=== PATIENT | male | born 1960 | race Caucasian/White ===

== ENCOUNTER 2022-03-28 16:53 | Emergency (ER) | payer OTHER ==
[2022-03-28 17:05] VITALS: PULSE 59; TEMP 98.9; BMI 21.2
[2022-03-28 17:55] LABS: HEMATOCRIT 48.9 % (35.4-49); HEMOGLOBIN 16.9 G/dL (11.7-16.9); MCH 31.3 pg (25.7-33.7); MCHC 34.6 g/dl (32.0-35.9); MEAN CELL VOLUME 90.4 fl (80-96); MEAN PLT VOLUME 8.3 fl (7.5-11.1); PLATELET COUNT 241.2 10^3/uL (134-434); RBC 5.41 10^6/uL (4.00-5.60); WHITE BLOOD COUNT 9.8 10^3/uL (4.0-10.8)
[2022-03-28 18:11] LABS: PLATELET ESTIMATE ADEQUATE
[2022-03-28 18:13] LABS: ALBUMIN 4.9 g/dl (3.4-5.0); BILIRUBIN,TOTAL 1.6 mg/dl (0.2-1); CALCIUM 10.4 mg/dl (8.5-10); CREATININE 1.1 mg/dl (0.55-1.3); TOT PROT 8.1 g/dl (6.4-8.2)
[2022-03-28 18:37] VITALS: BP 139/92
[2022-03-28] MEDS ORDERED: CIPROFLOXACIN 500 MG TABLET (RESTRICTED TO ID) PO ONE (20:16)
[2022-03-28] MEDS ORDERED: CIPROFLOXACIN 250 MG TABLET (RESTRICTED TO ID) PO ONE (20:18)
== END 2022-03-28 20:42 | disposition home or self-care (01) ==
LOC: FER 16:53
DX: R33.9 Retention of urine, unspecified (principal)
CPT/HCPCS: 36415; 80053; 81003; 81015; 82550; 82553; 85027; 87086; 93005; 99284-25

== ENCOUNTER 2022-03-30 17:13 | Emergency (ER) | payer OTHER ==
[2022-03-30 18:28] VITALS: BP 144/83; PULSE 58; TEMP 99.4; BMI 21.2
== END 2022-03-30 18:32 | disposition home or self-care (01) ==
LOC: FER 17:13
DX: R33.9 Retention of urine, unspecified (principal)
CPT/HCPCS: 76775-TC; 81003; 87086; 99284-25

== ENCOUNTER 2022-04-25 04:18 | Day surgery (SDC) | payer OTHER ==
[2022-04-17 17:40] VITALS: BMI 21.2
[2022-04-25] MEDS ORDERED: MIDAZOLAM HCL 2 MG/2 ML SINGLE DOSE VIAL ONE (14:49)
[2022-04-25] MEDS ORDERED: ceFAZolin SODIUM 1 GM VIAL IVPB ONE ×2 (15:11→15:40)
[2022-04-25] MEDS ORDERED: ceFAZolin SODIUM 1 GM VIAL ONE (15:13)
[2022-04-25] MEDS ORDERED: LIDOCAINE HCL 2% JELLY 10 ML CARTRIDGE ONE (15:16)
[2022-04-25] MEDS ORDERED: oxyCODONE HCL 5 MG TABLET PO PRN ×2 (15:23)
[2022-04-25] MEDS ORDERED: ONDANSETRON 4 MG/2 ML VIAL IVPUSH PRN (15:23)
[2022-04-25] MEDS ORDERED: LIDOCAINE HCL 2% JELLY 10 ML CARTRIDGE TP ONE (15:25)
[2022-04-25] MEDS ORDERED: LACTATED RINGERS SOLUTION 1,000 ML IV SCH (15:30)
[2022-04-25 18:15] VITALS: BP 133/86; PULSE 63; TEMP 98.5
== END 2022-04-25 18:25 | disposition home or self-care (01) ==
LOC: JASU-SURG 04:18
PROVIDERS: ATTEND Urology
PROC: 0T7D8DZ Dilation of Urethra with Intraluminal Device, Via Natural or Artificial Opening Endoscopic (ICD-10-PCS; principal; 2022-04-25 15:00)
DX: N40.1 Benign prostatic hyperplasia with lower urinary tract symptoms (principal); R33.8 Other retention of urine
CPT/HCPCS: C9740; L8699; 94760

== ENCOUNTER 2022-08-15 22:00 | Emergency (ER) | payer OTHER ==
[2022-08-15 22:11] VITALS: BP 136/74; PULSE 68; RESP 16; TEMP 98.6; BMI 21.2
== END 2022-08-15 22:48 | disposition home or self-care (01) ==
LOC: FER 22:00
DX: S62.102A Fracture of unspecified carpal bone, left wrist, initial encounter for closed fracture (principal); W19.XXXA Unspecified fall, initial encounter
CPT/HCPCS: 73110-TC-LT-FY; 99283-25

== ENCOUNTER 2024-06-02 06:39 | Emergency (ER) | payer OTHER, MEDICARE ==
[2024-06-02 06:59] VITALS: BP 148/96; PULSE 63; RESP 18; TEMP 97.7; BMI 21.8
== END 2024-06-02 07:15 | disposition home or self-care (01) ==
LOC: FER 06:39
PROC: 0T2BX0Z Change Drainage Device in Bladder, External Approach (ICD-10-PCS; principal; 2024-06-02)
DX: R33.9 Retention of urine, unspecified (principal); R10.30 Lower abdominal pain, unspecified
CPT/HCPCS: 99283-25

== ENCOUNTER 2025-02-24 10:02 | Emergency (ER) | payer OTHER, MEDICARE ==
[2025-02-24 10:13] VITALS: BP 131/88; PULSE 56; RESP 18; TEMP 97.9; BMI 21.7
[2025-02-24] MEDS ORDERED: FAMOTIDINE 20 MG/50 ML IVPB 20 MG/50 ML MG IVPB ONE (11:04)
[2025-02-24] MEDS ORDERED: MAG HYDROX/AL HYDROX/SIMETH 30 ML UNIT-DOSE CUP ONE (11:04)
[2025-02-24] MEDS: MAG HYDROX/AL HYDROX/SIMETH 30 ML UNIT-DOSE CUP PO ONE (11:11)
[2025-02-24] MEDS: FAMOTIDINE 20 MG/50 ML IVPB 20 MG/50 ML MG IVPB ONE (11:11)
[2025-02-24 11:22] LABS: BASOPHILS # 0.03 x10^3/uL (0.01-0.08); EOSINOPHIL % 1.2 % (0.8-7.0); EOSINOPHILS # 0.06 x10^3/uL (0.04-0.54); HEMATOCRIT 45.4 % (40.1-51.0); MEAN CELL VOLUME 90.1 fl (79.0-92.2); MEAN PLT VOLUME 10.2 fl (9.4-12.4); MONOCYTE # 0.43 x10^3/uL (0.30-0.82); MONOCYTE % 8.3 % (5.3-12.2); PLATELET COUNT 210 x10^3/uL (163-337); RDW 13.5 % (12.2-16.4)
[2025-02-24 11:23] LABS: INR 0.96 (0.83-1.09); PROTHROMBIN TIME (PATIENT) 10.7 SEC (9.7-13.0)
[2025-02-24 11:25] LABS: ACTIVATED PTT 32.6 SECONDS (25.2-36.5)
[2025-02-24 11:32] LABS: ALBUMIN 4.8 g/dl (3.4-5.0); ALK PHOS 60 U/L (45-117); ANION GAP 7 mmol/L (4-13); BILIRUBIN,TOTAL 0.6 mg/dl (0.2-1); CHLORIDE 104 mmol/L (98-107); CO2 28 mmol/L (21-32); GLUCOSE,RANDOM 101 mg/dl (74-106); POTASSIUM 4.1 mmol/L (3.5-5.1); SGOT/AST 23 U/L (15-37); SGPT/ALT 18 U/L (7-52); SODIUM 139 mmol/L (136-145); TOT PROT 7.2 g/dl (6.4-8.2)
== END 2025-02-24 15:30 | disposition home or self-care (01) ==
LOC: FER 10:02
PROC: 3E033GC Introduction of Other Therapeutic Substance into Peripheral Vein, Percutaneous Approach (ICD-10-PCS; principal; 2025-02-24)
DX: K31.9 Disease of stomach and duodenum, unspecified (principal)
CPT/HCPCS: 36415; 71260-TC; 74177-TC; 76705-TC; 80053; 81003; 83690; 84484; 85025; 85610; 85730; 86140; 86850; 86900; 86901; 93005; 99285-25; Q9967